=== PATIENT | male | born 1965 | race Caucasian/White ===

== ENCOUNTER → 2017-06-17 | Outpatient (CLI) | payer BC ==
[~2017-06-17] VITALS: Ht 180.3 cm; Wt 74.8 kg
[~2017-06-17] MED LIST: ALEVE 220MG220 MG PO; FISH OIL 1000MG1 CAP PO; HARD NAILS 2.51 CAP PO; MULTI VITAMINS1 TAB PO; VITAMIN C500 MG PO; ZETIA 10MG TAB10 MG PO; ZOLOFT 50MG50 MG PO
[2017-06-17 06:32] VITALS: BP 143/89; PULSE 42
== END ==
LOC: COL.CARD 06:18
DX: R07.89 Other chest pain (principal)
CPT/HCPCS: A9502

== ENCOUNTER 2017-07-16 12:41 | Day surgery (SDC) | payer BC ==
[2017-07-16] VITALS (10 sets, daily range): BP systolic 100–1113; BP diastolic 57–90; PULSE 46–61; TEMP 97.9
[~2017-07-16] VITALS: Ht 180.3 cm; Wt 72.9 kg
[2017-07-16 13:23] LABS: HEMATOCRIT 44.1 % (42.0-52.0); HEMOGLOBIN 15.4 g/dl (13.5-18.0); MEAN CELL VOLUME 90 fl (80.0-100.0); MEAN CORPUSCULAR HEMOGLOBIN 31 pg (27.0-31.0); MEAN CORPUSCULAR HGB CONC 35 g/dl (33.0-37.0); MEAN PLATELET VOLUME 10.1 fl (7.4-10.4); PLATELET COUNT 250 K/mm3 (130-400); RED BLOOD COUNT 4.93 M/mm3 (4.20-5.60); REDCELL DISTRIBUTION WIDTH-CV 12.2 % (11.5-14.5)
[2017-07-16 13:24] LABS: CALCIUM 9.1 mg/dL (8.4-10.2); CREATININE, serum 0.98 mg/dL (0.66-1.25); POTASSIUM 3.9 mmol/L (3.4-5.0)
[2017-07-16] MEDS ORDERED: NATURAL E400 IU PO (13:37)
[2017-07-16] MEDS ORDERED: TOPROL XL 50MG50 MG PO (13:37)
[2017-07-16] MEDS ORDERED: ASPIRIN 81M81 MG/TA2 PO (13:38)
[2017-07-16] MEDS ORDERED: CLEOCIN HCL300 MG PO (16:04)
== END 2017-07-16 20:14 | disposition home or self-care (01) ==
LOC: COL.CAR 12:41
PROVIDERS: Internal Medicine Cardiovascular Disease
DX: I47.2 Ventricular tachycardia (principal); R55 Syncope and collapse; I25.10 Atherosclerotic heart disease of native coronary artery without angina pectoris; Z79.82 Long term (current) use of aspirin; Z68.22 Body mass index [BMI] 22.0-22.9, adult; E78.5 Hyperlipidemia, unspecified; Z82.49 Family history of ischemic heart disease and other diseases of the circulatory system
CPT/HCPCS: J2250; J3010; Q9967

== ENCOUNTER 2020-07-25 09:33 | Day surgery (SDC) | payer BC ==
[~2020-07-25] VITALS: Ht 180.3 cm; Wt 74.9 kg
[2020-07-25] VITALS (7 sets, daily range): BP systolic 101–141; BP diastolic 66–88; PULSE 55–66; TEMP 97.6–98.4
[~2020-07-25 09:33] MED LIST changes: +ASPIRIN 81M81 MG/TA2 PO; +CLEOCIN HCL300 MG PO; +NATURAL E400 IU PO; +TOPROL XL 50MG50 MG PO
[2020-07-25 10:53] LABS: HEMATOCRIT 46.6 % (42.0-52.0); HEMOGLOBIN 15.8 g/dl (13.5-18.0); MEAN CELL VOLUME 90 fl (80.0-100.0); MEAN CORPUSCULAR HEMOGLOBIN 30 pg (27.0-31.0); MEAN CORPUSCULAR HGB CONC 34 g/dl (33.0-37.0); MEAN PLATELET VOLUME 9.6 fl (7.4-10.4); PLATELET COUNT 247 K/mm3 (130-400); RED BLOOD COUNT 5.19 M/mm3 (4.20-5.60); REDCELL DISTRIBUTION WIDTH-CV 11.9 % (11.5-14.5)
[2020-07-25 11:01] LABS: PROTHROMBIN TIME 11.4 SECONDS (9.7-12.8)
[2020-07-25 11:02] LABS: CALCIUM 9.1 mg/dL (8.4-10.2); CREATININE, serum 0.97 (0.66-1.25)
[2020-07-25] MEDS ORDERED: JUBLIA TOP (11:13)
[2020-07-25] MEDS ORDERED: CRESTOR 10MG10 MG PO (11:15)
[2020-07-25] MEDS ORDERED: ADVIL200 MG PO (11:17)
--- NOTE | 2020-07-25 11:45 | NUR ---
Pt to procedure.
--- NOTE | 2020-07-25 11:59 | NUR ---
SEE MERGE DOCUMENTATION FOR MEDICATION ADMINISTRATION TIMES AND INTRA/POST PROCEDURE SEDATION ASSESSMENTS.
[2020-07-26 00:16] VITALS: BP 132/89; PULSE 59; TEMP 98.5
--- NOTE | 2020-07-26 02:12 | NUR ---
1945- PT ASSESSED. C/O FEELING PALPATIONS IN CHEST. NONE FELT OF HEARD WITH ASCULTATION NOR ON TELE MONITOR SEEN. AV PACED AT 60 . STATES HAS FELT OFF AND ON. NOT PAINFUL OR BOTHERSOME. LT ARM IN SLING. PACEMAKER SITE C/D/I. UP AMBULATING IN HALLS . REFUSED STATIN STATES HIS ROUTINE IS TAKE IN AM. WILL PASS ALONG. DENIES SOA, DIZZY OR LIGHTHEADED. NEEDS MET. 0000- ANTIBOTICS HUNG PER ORDER. DENIES FEELING PAIN OR CHEST DISCOMFORT. LIGHTS DOWN , RESTING W EYES CLOSED, RESP EVEN AND UNLABORED.
--- NOTE | 2020-07-26 02:58 | NUR ---
0245- PT REPORTS FEELING SHIVERY WHEN UP TO BR. STATES NO PAIN, SOA, OR DISCOMFORT JUST NEEDED REASSURANCE EVERYTHING WAS OKAY. TEMP 97.9. STATES ONCE UNDER BLANKET IT WENT AWAY. OFFERED WARM BLANKET, DECLINED. PACED AT 60 ON TELE.
[2020-07-26 04:43] VITALS: BP 130/82; PULSE 59; TEMP 97.7
--- NOTE | 2020-07-26 04:45 | NUR ---
RESTING THE REST OF THE NIGHT WO INCIDENT. NEEDS MET.
[2020-07-26 07:39] LABS: BASO % 0.7 % (0.0-2.0); EOS # 0.1 (0.0-0.7); EOS % 0.9 % (0-4.0); GRAN # 4.4 (1.4-6.5); GRAN % 77.5 % (42.2-75.2); HEMATOCRIT 44.5 % (42.0-52.0); LYMPH # 0.7 (1.2-3.4); LYMPH % 11.9 % (20.0-51.0); MEAN CELL VOLUME 90 fl (80.0-100.0); MEAN CORPUSCULAR HEMOGLOBIN 30 pg (27.0-31.0); MEAN CORPUSCULAR HGB CONC 34 g/dl (33.0-37.0); MONO # 0.5 (0.1-0.6); MONO % 8.8 % (1.7-9.3); PLATELET COUNT 219 K/mm3 (130-400); RED BLOOD COUNT 4.93 M/mm3 (4.20-5.60); REDCELL DISTRIBUTION WIDTH-CV 11.9 % (11.5-14.5)
[2020-07-26 07:52] VITALS: BP 144/93; PULSE 60; TEMP 98.1
[2020-07-26 08:01] LABS: ALBUMIN 3.7 gm/dL (3.5-5.0); BILIRUBIN,TOTAL 0.5 mg/dL (0.0-1.0); CALCIUM 9.2 mg/dL (8.4-10.2); POTASSIUM 3.7 mmol/L (3.4-5.0); TOTAL PROTEIN 6.7 gm/dL (6.4-8.2)
--- NOTE | 2020-07-26 08:07 | NUR ---
Pt assessment complete. Pt is up independently in the room, he is A/O x4. His breathing is even and unlabored on RA. Pt denies SOB. No pain, soreness to incision site with palpation. No N/V. POC discussed with patient who verbalizes understanding. LUE restrictions discussed with patient. No further needs at this time.
[2020-07-26] MEDS ORDERED: CLEOCIN HC150 MG/CAP PO (11:50)
--- NOTE | 2020-07-26 12:18 | NUR ---
First visit from the brand ambassador promotional model. No needs right now.
--- NOTE | 2020-07-26 12:20 | NUR ---
Discharge paperwork and instructions reviewed with patient. All questions answered. IV dc'd to LAC, catheter tip intact. Pt walked out at this time.
--- NOTE | 2020-07-26 14:18 | NUR ---
The patient discharge before this Sliver Handler could complete intake.
== END 2020-07-26 12:21 | disposition home or self-care (01) ==
LOC: COL.CAR → MEDICAL 14:11 → COL.CAR 07-26 12:21
PROVIDERS: Internal Medicine Cardiovascular Disease
DX: I49.5 Sick sinus syndrome (principal); R00.1 Bradycardia, unspecified; I45.5 Other specified heart block; I25.10 Atherosclerotic heart disease of native coronary artery without angina pectoris; R55 Syncope and collapse; I10 Essential (primary) hypertension; E78.5 Hyperlipidemia, unspecified; Z20.822 Contact with and (suspected) exposure to COVID-19; Z88.0 Allergy status to penicillin; Z79.899 Other long term (current) drug therapy
CPT/HCPCS: OP; C1769; C1892; C1894; C1898; C1900; C2621; J2250; J3010; J3370; J7030; J7050; Q9967